=== PATIENT | male | born 1995 | race Caucasian/White ===

== ENCOUNTER 2016-10-16 18:31 | Emergency (ER) | payer SELFPAY ==
[2016-10-16] MEDS ORDERED: TYLENOL ONE (19:26)
[2016-10-16] MEDS ORDERED: TYLENOL PO ONE (19:29)
--- NOTE | 2016-10-16 20:17 | XRay Report ---
FINAL REPORT PROCEDURE: Left hand. TECHNIQUE: Three views. HISTORY: Laceration to 2nd digit. COMPARISON: No prior studies are available for comparison. FINDINGS: The bones appear intact without fracture or dislocation. The joint spaces appear normal. There is a laceration on the lateral side of the index finger. This is located adjacent to the middle phalanx. There are no radiopaque foreign bodies. IMPRESSION: Soft tissue laceration.
[2016-10-16] MEDS ORDERED: NACL 0.9% 500 ML IR ONE (23:34)
[2016-10-16] MEDS ORDERED: NACL 0.9% IR ONE (23:34)
[2016-10-17] MEDS ORDERED: XYLOCAINE 2% INFILTRATI ONE ×2 (00:20→00:23)
[2016-10-17] MEDS ORDERED: BOOSTRIX IM ONE (01:31)
[2016-10-17] MEDS ORDERED: ULTRAM PO ONE (01:31)
--- NOTE | 2016-10-17 02:33 | Emergency Department Report ---
- General Chief Complaint: Wound/Laceration Stated Complaint: LT HAND LAC Time Seen by Provider: 10/17/16 00:18 Source: patient Mode of arrival: Ambulatory Limitations: Language Barrier - History of Present Illness Initial Comments: left index finger laceration on is[place] belt Onset/Timin -: hour(s) Location: other (left index finger ) Extremity Location: Left: Hand (left medial index finger ) Place: work Patient Tetanus UTD: No Context: accidental Associated Symptoms: pain. denies: loss of feeling/numbness, weakness followed by dizziness Treatments Prior to Arrival: other (none) - Related Data Previous Rx's Medication Instructions Recorded Last Taken Type Bacitracin/Polymixin B [Polysporin] 1 applicatio TP BID #1 tube 10/17/16 Unknown Rx Cephalexin [Keflex] 500 mg PO QID #40 capsule 10/17/16 Unknown Rx traMADol [Ultram 50 MG tab] 50 mg PO Q6HR PRN #24 tablet 10/17/16 Unknown Rx Allergies Allergy/AdvReac Type Severity Reaction Status Date / Time No Known Allergies Allergy Verified 10/16/16 19:29 ED Review of Systems ROS: Stated complaint: LT HAND LAC Other details as noted in HPI Constitutional: denies: chills, fever Eyes: denies: eye pain, eye discharge, vision change ENT: denies: ear pain, throat pain Respiratory: denies: cough, shortness of breath, wheezing Cardiovascular: denies: chest pain, palpitations Endocrine: no symptoms reported Gastrointestinal: denies: abdominal pain, nausea, diarrhea Genitourinary: denies: urgency, dysuria Musculoskeletal: denies: back pain, joint swelling, arthralgia Skin: other (laceration left index finger ) Neurological: denies: headache, weakness, paresthesias Psychiatric: denies: anxiety, depression Hematological/Lymphatic: denies: easy bleeding, easy bruising ED Past Medical Hx - Past Medical History Previous Medical History?: No - Surgical History Past Surgical History?: Yes Additional Surgical History: ABD - Social History Smoking Status: Never Smoker Substance Use Type: Alcohol - Medications Home Medications: Home Medications Medication Instructions Recorded Confirmed Last Taken Type Bacitracin/Polymixin B [Polysporin] 1 applicatio TP BID #1 tube 10/17/16 Unknown Rx Cephalexin [Keflex] 500 mg PO QID #40 capsule 10/17/16 Unknown Rx traMADol [Ultram 50 MG tab] 50 mg PO Q6HR PRN #24 tablet 10/17/16 Unknown Rx ED Physical Exam - General Limitations: Language Barrier General appearance: alert, in no apparent distress - Head Head exam: Present: atraumatic, normocephalic - Eye Eye exam: Present: normal appearance, PERRL, EOMI Pupils: Present: normal accommodation - ENT ENT exam: Present: mucous membranes moist - Neck Neck exam: Present: normal inspection - Respiratory Respiratory exam: Present: normal lung sounds bilaterally. Absent: respiratory distress - Cardiovascular Cardiovascular Exam: Present: regular rate, normal rhythm. Absent: systolic murmur, diastolic murmur, rubs, gallop - GI/Abdominal GI/Abdominal exam: Present: soft, normal bowel sounds - Expanded Upper Extremity Exam Left General: Present: laceration Shoulder Exam: Present: normal inspection Upper Arm exam: Present: normal inspection Elbow exam: Present: normal inspection Forearm Wrist exam: Present: normal inspection Hand Wrist exam: Present: full ROM, tenderness, laceration, other (left medial index finger ). Absent: ecchymosis, deformity, crepidus, dislocation Hand L/R Front: 1 - Positive: laceration. Negative: abrasion, foreign body, amputation, avulsion Neuro motor exam: Present: wrist extension intact, thumb opposition intact, thumb IP flexion intact, thumb adduction intact, fingers 2-5 abduction intact Neurosensory exam: Present: 2-point discrimination, radial nerve intact, ulnar nerve intact, median nerve intact Vascular: Present: normal capillary refill, radial pulse, ulnar pulse. Absent: vascular compromise, Pallo, pulse deficit radial art, pulse deficit ulnar art, pulse deficit brachial art - Back Exam Back exam: Present: normal inspection - Neurological Exam Neurological exam: Present: alert, oriented X3 - Psychiatric Psychiatric exam: Present: normal affect, normal mood - Skin Skin exam: Present: warm, dry, intact, normal color. Absent: rash ED Course Vital Signs 10/16/16 19:31 Temperature 98.5 F Pulse Rate 82 Respiratory 18 Rate Blood Pressure 133/81 [Right] O2 Sat by Pulse 100 Oximetry - Laceration /Wound Repair Left Palm Finger Wound Location: upper extremity Wound Explored: clean Irrigated w/ Saline (ccs): 100 Betadine Prep?: Yes Anesthesia: 1% Lidocaine Volume Anesthetic (ccs): 2 Wound Debrided: moderate Wound Repaired With: sutures Suture Size/Type: 3:0, proline Number of Sutures: 8 Sterile Dressing Applied?: Yes Progress: left index finger medial redd side laceration over second joint with karate black belt laceration 1.3 cm , minimal bledding flexion extension intact, 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 ED Medical Decision Making - Medical Decision Making pt is a 21 y/o male who presents for finger laceration left index finger , pt advise finger versus [place] belt , laceration repair see procedure note, there is no neuro muscle or tendon involvement rom intact flexion extension intact, staffing specialist, <3 secs pt given wound care instructions will return to ed or follow up with primary care for suture removal in 7-10 days , pt verbalized agreement and understanding with discharge plan. Critical care attestation.: If time is entered above; I have spent that time in minutes in the direct care of this critically ill patient, excluding procedure time. ED Disposition Clinical Impression: Laceration of left index finger Qualifiers: Encounter type: initial encounter Damage to nail status: without damage Foreign body presence: without foreign body Qualified Code(s): S61.211A - Laceration without foreign body of left index finger without damage to nail, initial encounter Disposition: TO HOME OR SELFCARE Is pt being admited?: No Does the pt Need Aspirin: No Condition: Good Instructions: Finger Laceration (ED) Prescriptions: Bacitracin/Polymixin B [Polysporin] 1 applicatio TP BID #1 tube Cephalexin [Keflex] 500 mg PO QID #40 capsule traMADol [Ultram 50 MG tab] 50 mg PO Q6HR PRN #24 tablet PRN Reason: Pain Referrals: PRIMARY CARE,MD [Primary Care Provider] - 3-5 Days Forms: Work/School Release Form(ED) Time of Disposition: 02:44
[2016-10-17 03:02] VITALS: BP 145/72
--- NOTE | 2016-10-17 10:29 | XRay Report ---
LEFT INDEX FINGER THREE VIEWS: 10/16/16 18:31:00 CLINICAL: Trauma and laceration. FINDINGS: No fracture or dislocation. Soft tissue swelling and an oblique laceration lateral to the middle phalanx. No soft tissue air or foreign body. IMPRESSION: Soft tissue laceration. Otherwise normal.
== END 2016-10-17 03:02 | disposition home or self-care (01) ==
LOC: ED 18:31
DX: S61.211A Laceration without foreign body of left index finger without damage to nail, initial encounter (principal); W45.8XXA Other foreign body or object entering through skin, initial encounter; Y93.89 Activity, other specified; Y92.89 Other specified places as the place of occurrence of the external cause; Y99.8 Other external cause status
CPT/HCPCS: 90471; 90715; 99283

== ENCOUNTER 2016-10-28 10:39 | Emergency (ER) | payer SELFPAY ==
[2016-10-28 10:47] VITALS: BP 125/76
--- NOTE | 2016-10-28 10:55 | Emergency Department Report ---
Suture/Staple Removal - HPI Chief Complaint: Laceration/Recheck/Suture Stated Complaint: STITCHES REMOVED Time Seen by Provider: 10/28/16 10:48 When Sutures or [place] Placed: 8-10 Days Ago (l finger index; placed on 16th. no s/s infection) ED Review of Systems ROS: Stated complaint: STITCHES REMOVED Other details as noted in HPI Comment: All other systems reviewed and negative Constitutional: no symptoms reported, see HPI Eyes: as per HPI ENT: as per HPI Respiratory: no symptoms reported, see HPI Cardiovascular: as per HPI Endocrine: no symptoms reported Gastrointestinal: as per HPI Genitourinary: as per HPI Musculoskeletal: as per HPI Skin: as per HPI Neurological: as per HPI Psychiatric: as per HPI Hematological/Lymphatic: as per HPI ED Past Medical Hx - Past Medical History Previous Medical History?: No - Surgical History Past Surgical History?: No Additional Surgical History: ABD - Family History Family history: no significant - Social History Smoking Status: Never Smoker Substance Use Type: None - Medications Home Medications: Home Medications Medication Instructions Recorded Confirmed Last Taken Type Bacitracin/Polymixin B [Polysporin] 1 applicatio TP BID #1 tube 10/17/16 Unknown Rx Cephalexin [Keflex] 500 mg PO QID #40 capsule 10/17/16 Unknown Rx traMADol [Ultram 50 MG tab] 50 mg PO Q6HR PRN #24 tablet 10/17/16 Unknown Rx Suture Removal Exam - Exam General: Vital signs noted. No distress. Alert and acting appropriately. Wound: No Pathologic Erythema, No Tenderness, No Drainage, No Pus, No Wound Dehiscence Other Systems: All other systems reviewed and are unremarkable. n/v intact full rom good pulses rapid cap refill no s/s infection ED Course Vital Signs 10/28/16 10:44 Temperature 98.6 F Pulse Rate 65 Respiratory 17 Rate Blood Pressure 125/76 O2 Sat by Pulse 100 Oximetry - Reevaluation(s) Reevaluation #1: 10/28/16 10:52 suture removed wound cleaned bandaid ED Recheck MDM - Core Measures AMI Core Measures Followed: No Measure Exclusions: not indicated - Differential Diagnosis Suture/Staple Removal Critical care attestation.: If time is entered above; I have spent that time in minutes in the direct care of this critically ill patient, excluding procedure time. ED Disposition Clinical Impression: Visit for suture removal Disposition: TO HOME OR SELFCARE Is pt being admited?: No Does the pt Need Aspirin: No Condition: Stable Instructions: Suture Care (ED), Suture Removal (ED) Additional Instructions: keep clean and dry finish any remaining antibiotics Referrals: XIOMARA SMITH MD [Staff Physician] - 3-5 Days Time of Disposition: 10:55
== END 2016-10-28 11:09 | disposition home or self-care (01) ==
LOC: ED 10:39
DX: Z48.02 Encounter for removal of sutures (principal)